=== PATIENT | male | born 1945 ===

== ENCOUNTER 2021-01-31 03:20 | Outpatient (CLI) | payer OTHER, SELFPAY ==
[2021-01-31 09:22] LABS: Clarity Clear (Clear); Leukocyte Esterase Negative (Negative); Nitrite Negative (Negative); Specific Gravity 1.025 (1.005-1.025)
[2021-01-31 09:23] LABS: Bacteria Many HPF (Negative); Bilirubin Negative (Negative); Blood Trace-intact (Negative); Casts Negative LPF (Negative); Crystals Negative HPF (Negative); Epithelial Cells Negative HPF (Negative); Glucose 500 mg/dL (Negative); Ketones Negative (Negative); Mucus Negative (Negative); RBC 0-2 HPF (0-2); Urobilinogen 0.2 EU/dL (Up TO 0.2); WBC 20-50 HPF (0-5)
[2021-01-31 09:24] LABS: C & S Indicated? Yes
[2021-01-31 10:22] LABS: ALT 41 U/L (16-63); AST 22 U/L (15-37); Albumin 4.3 g/dL (3.4-5.0); Alkaline Phosphatase 75 U/L (46-116); Anion Gap 9.2 mmol/L (3-11); BUN 22 mg/dL (7-18); Bilirubin, Total 0.6 mg/dL (0.2-1.0); CO2 30.8 mmol/L (21.0-32.0); CREATININE 1.2 mg/dL (0.70-1.30); Calcium 9.7 mg/dL (8.5-10.1); Chloride 103 mmol/L (98-107); Estimated GFR 59.35 (mL/min/1.73m2); Glucose 115 mg/dL (74-106); Potassium 4.1 mmol/L (3.5-5.1); Sodium 143 mmol/L (136-145); Total Protein 7.5 g/dL (6.4-8.2)
== END 2021-01-31 03:21 | disposition home or self-care (01) ==
LOC: LBO 03:20
PROVIDERS: Visit Provider Chiropractor
DX: E11.9 Type 2 diabetes mellitus without complications (principal)
CPT/HCPCS: 36415; 80053; 87077; 81003; 81015; 87086; 87186